=== PATIENT | female | born 1995 | race Caucasian/White ===

== ENCOUNTER 2017-02-14 17:19 | Emergency (ER) | payer MEDICAID ==
[2017-02-14 17:36] VITALS: BP 122/78; PULSE 96; RESP 16; TEMP 97.9; O2SAT 100
[2017-02-14 17:40] LABS: COLOR PALE YELLOW; LEUKOCYTE ESTERASE,URINE NEGATIVE (NEGATIVE); NITRITE,URINE NEGATIVE (NEGATIVE); PH,URINE 7.5 (5.0-7.5)
[2017-02-14 17:48] LABS: BACTERIA TRACE /hpf (NONE SEEN); MUCUS TRACE /lpf (NONE-1+); RBC,URINE OCCASIONAL /hpf (0-3)
[2017-02-14] MEDS ORDERED: CEPHALEXIN 500 MG CAP PO ONE (17:51)
--- NOTE | 2017-02-14 17:54 | UCPHY ---
H & P Patient Type: Established Chief Complaint Nursing Narrative: burning/frequency/urgency/bilateral flank pain x 2 days. Time Seen by Provider: 02/14/17 17:45 HPI/ROS: CHIEF COMPLAINT: Dysuria HISTORY OF PRESENT ILLNESS: The patient is a 21-year-old female diabetic who comes to the Urgent Care complaining of dysuria for the last 8 hours. She has not had a fever. She does have some bilateral flank pain. She states that this feels similar to previous urinary tract infections. Glucose level has been controlled. She has not had any abdominal cramping vomiting. No body aches. No rash. No discharge. No bleeding. REVIEW OF SYSTEMS: Constitutional: denies: chills, fever, recent illness, recent injury EENTM: denies: blurred vision, double vision, nose congestion Respiratory: denies: cough, shortness of breath Cardiac: denies: chest pain, irregular heart rate, lightheadedness, palpitations Gastrointestinal/Abdominal: denies: abdominal pain, diarrhea, nausea, vomiting, blood streaked stools Genitourinary: See HPI Musculoskeletal: denies: joint pain, muscle pain Skin: denies: lesions, rash, jaundice, bruising Neurological: denies: headache, numbness, paresthesia, tingling, dizziness, weakness Hematologic/Lymphatic: denies: blood clots, easy bleeding, easy bruising Immunologic/allergic: denies: HIV/AIDS, transplant EXAM: GENERAL: Well-appearing, well-nourished and in no acute distress. HEAD: Atraumatic, normocephalic. EYES: Pupils equal round and reactive to light, extraocular movements intact, sclera anicteric, conjunctiva are normal. ENT: TMs normal, nares patent, oropharynx clear without exudates. Moist mucous membranes. NECK: Normal range of motion, supple without lymphadenopathy or JVD. LUNGS: Breath sounds clear to auscultation bilaterally and equal. No wheezes rales or rhonchi. HEART: Regular rate and rhythm without murmurs, rubs or gallops. ABDOMEN: Soft, nontender, normoactive bowel sounds. No guarding, no rebound. No masses appreciated. BACK: No CVA tenderness, no spinal tenderness, step-offs or deformities EXTREMITIES: Normal range of motion, no pitting or edema. No clubbing or cyanosis. NEUROLOGICAL: Cranial nerves II through XII grossly intact. Normal speech, normal gait. 5/5 strength, normal movement in all extremities, normal sensation PSYCH: Normal mood, normal affect. SKIN: Warm, dry, normal turgor, no visible rashes or lesions. Source: Patient Exam Limitations: No limitations - Personal History LMP (Females 10-55): Extended Cycle BCP/Inj Tetanus Vaccine Date: Aug 2012 - Medical/Surgical History Hx Asthma: No Hx Chronic Respiratory Disease: No Hx Diabetes: No Hx Cardiac Disease: No Hx Renal Disease: No Hx Cirrhosis: No Hx Alcoholism: No Hx HIV/AIDS: No Hx Splenectomy or Spleen Trauma: No Other PMH: DM I, anxiety/depression - Family History Significant Family History: No pertinent family hx - Social History Smoking Status: Current every day smoker Alcohol Use: Sober Drug Use: None Constitutional: Initial Vital Signs Temperature (C) 36.6 C 02/14/17 17:29 Heart Rate 96 02/14/17 17:29 Respiratory Rate 16 02/14/17 17:29 Blood Pressure 122/78 H 02/14/17 17:29 O2 Sat (%) 100 02/14/17 17:29 O2 Delivery Mode Room Air Allergies/Adverse Reactions: Opioids - Morphine Analogues Allergy (Verified 05/08/16 10:36) Home Medications: Medication Instructions Recorded Insulin Detemir [Levemir] 12 unit SQ BID 12/28/14 Insulin Lispro [Humalog] 0 unit SQ TIDMEAL 12/28/14 Control Patch 05/08/16 Acyclovir 06/02/16 Cephalexin [Keflex] 500 mg PO BID 5 Days 06/02/16 Cephalexin [Keflex] 500 mg PO TID #21 cap 02/14/17 Medical Decision Making ED Course/Re-evaluation: The patient has symptoms and urinalysis consistent with urinary tract infection. I will start her on Keflex. She states that her glucose has been well controlled. She is not concerned about DKA. We did discuss the glucose in her urine. She does state Dinner. She declines further workup or testing at this time. We discussed urine cultures and continued follow-up. Differential Diagnosis: Partial list of the Differential diagnosis considered include but were not limited to; urinary tract infection, DKA and although unlikely based on the history and physical exam, I also considered STD PID kidney stone, . I discussed these differential diagnoses and the plan with the patient as well as the usual and expected course. The patient understands that the diagnosis is provisional and that in medicine we are not always correct and that further workup is often warranted. Usual and customary warnings were given. All of the patient's questions were answered. The patient was instructed to return to the emergency department should the symptoms at all worsen or return, otherwise to followup with the physician as we discussed. - Data Points Laboratory Results: 02/14/17 17:35 Urine Color PALE YELLOW Urine Appearance HAZY Urine pH 7.5 (5.0-7.5) Ur Specific [place] 1.015 (1.002-1.030) Urine Protein NEGATIVE (NEGATIVE) Urine Ketones NEGATIVE (NEGATIVE) Urine Blood NEGATIVE (NEGATIVE) Urine Nitrate NEGATIVE (NEGATIVE) Urine Bilirubin NEGATIVE (NEGATIVE) Urine Urobilinogen 0.2 EU EU (0.2-1.0) Ur Leukocyte Esterase NEGATIVE (NEGATIVE) Urine RBC OCCASIONAL /hpf /hpf (0-3) Urine WBC 5-10 /hpf H /hpf (0-3) Ur Epithelial Cells TRACE /lpf /lpf (NONE-1+) Urine Bacteria TRACE /hpf H /hpf (NONE SEEN) Urine Mucus TRACE /lpf /lpf (NONE-1+) Ur Culture Indicated? NOT INDICATED (NI) Urine Glucose 3+ H (NEGATIVE) Medications Given: Discontinued Medications Cephalexin HCl (Keflex) 500 mg PO EDNOW ONE PRN Reason: Protocol Stop: 02/14/17 17:52 Last Admin: 02/14/17 18:09 Dose: 500 mg Departure - Departure Disposition: Home, Routine, Self-Care Clinical Impression: Urinary tract infection Qualifiers: Urinary tract infection type: acute cystitis Hematuria presence: without hematuria Qualified Code(s): N30.00 - Acute cystitis without hematuria Condition: Fair Instructions: Urinary Tract Infection in Women (ED) Referrals: Bela Denny MD [Medical Doctor] - As per Instructions Prescriptions: Cephalexin [Keflex] 500 mg PO TID #21 cap - PQRS PQRS Measurement: Not applicable
== END 2017-02-14 18:12 | disposition home or self-care (01) ==
LOC: CED 17:19
DX: N30.00 Acute cystitis without hematuria (principal); E11.9 Type 2 diabetes mellitus without complications; Z72.0 Tobacco use
CPT/HCPCS: 81003-PO; 81015-PO; 99214-PO; G0463-PO

== ENCOUNTER 2017-04-06 16:23 | Emergency (ER) | payer MEDICAID ==
[2017-04-06 16:39] VITALS: BP 117/98; TEMP 97.5
[2017-04-06 16:39] LABS: LEUKOCYTE ESTERASE,URINE NEGATIVE (NEGATIVE); NITRITE,URINE NEGATIVE (NEGATIVE); PH,URINE 5.5 (5.0-7.5)
[2017-04-06 16:41] LABS: COLOR DARK YELLOW
[2017-04-06 16:48] LABS: BACTERIA TRACE /hpf (NONE SEEN); MUCUS 1+ /lpf (NONE-1+); RBC,URINE 15-25 /hpf (0-3); WBC,URINE OCCASIONAL /hpf (0-3); YEAST OCCASIONAL /hpf (NONE SEEN)
--- NOTE | 2017-04-06 16:59 | EDPHY ---
H & P Stated Complaint: 3 days burning,urgency,frequency,back pain Time Seen by Provider: 04/06/17 16:44 HPI/ROS: CHIEF COMPLAINT: Dysuria HISTORY OF PRESENT ILLNESS: The patient is a 21-year-old female with a history of diabetes who comes to the emergency department complaining of dysuria and frequency. She has had the symptoms for about 2 days. She has frequent urinary tract infections. She is here requesting antibiotics. She has not had a fever. No flank pain. No nausea vomiting or diarrhea. She started her menses yesterday. REVIEW OF SYSTEMS: Constitutional: denies: chills, fever, recent illness, recent injury EENTM: denies: blurred vision, double vision, nose congestion Respiratory: denies: cough, shortness of breath Cardiac: denies: chest pain, irregular heart rate, lightheadedness, palpitations Gastrointestinal/Abdominal: denies: abdominal pain, diarrhea, nausea, vomiting, blood streaked stools Genitourinary: See HPI Musculoskeletal: denies: joint pain, muscle pain Skin: denies: lesions, rash, jaundice, bruising Neurological: denies: headache, numbness, paresthesia, tingling, dizziness, weakness Hematologic/Lymphatic: denies: blood clots, easy bleeding, easy bruising Immunologic/allergic: denies: HIV/AIDS, transplant EXAM: GENERAL: Well-appearing, well-nourished and in no acute distress. HEAD: Atraumatic, normocephalic. EYES: Pupils equal round and reactive to light, extraocular movements intact, sclera anicteric, conjunctiva are normal. ENT: TMs normal, nares patent, oropharynx clear without exudates. Moist mucous membranes. NECK: Normal range of motion, supple without lymphadenopathy or JVD. LUNGS: Breath sounds clear to auscultation bilaterally and equal. No wheezes rales or rhonchi. HEART: Regular rate and rhythm without murmurs, rubs or gallops. ABDOMEN: Soft, nontender, normoactive bowel sounds. No guarding, no rebound. No masses appreciated. BACK: No CVA tenderness, no spinal tenderness, step-offs or deformities EXTREMITIES: Normal range of motion, no pitting or edema. No clubbing or cyanosis. NEUROLOGICAL: Cranial nerves II through XII grossly intact. Normal speech, normal gait. 5/5 strength, normal movement in all extremities, normal sensation PSYCH: Normal mood, normal affect. SKIN: Warm, dry, normal turgor, no visible rashes or lesions. Source: Patient Exam Limitations: No limitations - Personal History LMP (Females 10-55): Now Tetanus Vaccine Date: Aug 2012 - Medical/Surgical History Hx Asthma: No Hx Chronic Respiratory Disease: No Hx Diabetes: Yes Hx Cardiac Disease: No Hx Renal Disease: No Hx Cirrhosis: No Hx Alcoholism: No Hx HIV/AIDS: No Hx Splenectomy or Spleen Trauma: No Other PMH: DM I, anxiety/depression - Family History Significant Family History: No pertinent family hx - Social History Smoking Status: Current every day smoker Alcohol Use: Sober Drug Use: None Constitutional: Initial Vital Signs Temperature (C) 36.4 C 04/06/17 16:36 Heart Rate 121 H 04/06/17 16:36 Respiratory Rate 20 04/06/17 16:36 Blood Pressure 117/98 H 04/06/17 16:36 O2 Sat (%) 98 04/06/17 16:36 O2 Delivery Mode Room Air Allergies/Adverse Reactions: Opioids - Morphine Analogues Allergy (Verified 04/06/17 16:35) Home Medications: Medication Instructions Recorded Insulin Detemir [Levemir] 12 unit SQ BID 12/28/14 Insulin Lispro [Humalog] 0 unit SQ TIDMEAL 12/28/14 Cephalexin [Keflex] 500 mg PO TID #21 cap 04/06/17 Medical Decision Making ED Course/Re-evaluation: Patient is well appearing. She has some glucose in her urine but states that this is because she just ate. She does not wish to have further testing. I will start her on Keflex. She states this worked well for her in the past. Differential Diagnosis: Partial list of the Differential diagnosis considered include but were not limited to; urinary tract infection, kidney infection and although unlikely based on the history and physical exam, I also considered sepsis, . I discussed these differential diagnoses and the plan with the patient as well as the usual and expected course. The patient understands that the diagnosis is provisional and that in medicine we are not always correct and that further workup is often warranted. Usual and customary warnings were given. All of the patient's questions were answered. The patient was instructed to return to the emergency department should the symptoms at all worsen or return, otherwise to followup with the physician as we discussed. - Data Points Laboratory Results: 04/06/17 16:35 Urine Color DARK YELLOW Urine Appearance HAZY Urine pH 5.5 (5.0-7.5) Ur Specific [place] >= 1.030 (1.002-1.030) Urine Protein TRACE H (NEGATIVE) Urine Ketones 1+ H (NEGATIVE) Urine Blood 3+ H (NEGATIVE) Urine Nitrate NEGATIVE (NEGATIVE) Urine Bilirubin NEGATIVE (NEGATIVE) Urine Urobilinogen 0.2 EU EU (0.2-1.0) Ur Leukocyte Esterase NEGATIVE (NEGATIVE) Urine RBC 15-25 /hpf H /hpf (0-3) Urine WBC OCCASIONAL /hpf /hpf (0-3) Ur Epithelial Cells TRACE /lpf /lpf (NONE-1+) Urine Bacteria TRACE /hpf H /hpf (NONE SEEN) Urine Mucus 1+ /lpf /lpf (NONE-1+) Urine Yeast OCCASIONAL /hpf H /hpf (NONE SEEN) Urine Glucose 2+ H (NEGATIVE) Departure - Departure Disposition: Home, Routine, Self-Care Clinical Impression: Urinary tract infection Qualifiers: Urinary tract infection type: acute cystitis Hematuria presence: without hematuria Qualified Code(s): N30.00 - Acute cystitis without hematuria Condition: Fair Instructions: Urinary Tract Infection in Women (ED) Referrals: Vonda Dockery MD [Primary Care Provider] - As per Instructions Prescriptions: Cephalexin [Keflex] 500 mg PO TID #21 cap
[2017-04-06 17:36] VITALS: PULSE 88; RESP 16; O2SAT 97
== END 2017-04-06 17:09 | disposition home or self-care (01) ==
LOC: CED 16:23
DX: N30.00 Acute cystitis without hematuria (principal); E10.9 Type 1 diabetes mellitus without complications; F17.200 Nicotine dependence, unspecified, uncomplicated; B96.89 Other specified bacterial agents as the cause of diseases classified elsewhere
CPT/HCPCS: 81003-PO; 81015-PO

== ENCOUNTER 2017-05-12 13:47 | Emergency (ER) | payer MEDICAID ==
[2017-05-12 13:58] VITALS: BP 113/77; PULSE 104; RESP 18; TEMP 98.2; O2SAT 97
--- NOTE | 2017-05-12 14:07 | EDPHY ---
H & P Stated Complaint: rash on back and left side Time Seen by Provider: 05/12/17 14:01 HPI/ROS: CHIEF COMPLAINT: Rash HISTORY OF PRESENT ILLNESS: The patient is a 21-year-old female who comes to the emergency department complaining of a rash on her back and now abdomen. It began 4 days ago. It is slightly painful and itchy. She has small pustules. They do not coalesce. No fever. REVIEW OF SYSTEMS: Constitutional: denies: chills, fever, recent illness, recent injury EENTM: denies: blurred vision, double vision, nose congestion Respiratory: denies: cough, shortness of breath Cardiac: denies: chest pain, irregular heart rate, lightheadedness, palpitations Gastrointestinal/Abdominal: denies: abdominal pain, diarrhea, nausea, vomiting, blood streaked stools Genitourinary: denies: dysuria, frequency, hematuria, pain Musculoskeletal: denies: joint pain, muscle pain Skin: See HPI Neurological: denies: headache, numbness, paresthesia, tingling, dizziness, weakness Hematologic/Lymphatic: denies: blood clots, easy bleeding, easy bruising Immunologic/allergic: denies: HIV/AIDS, transplant EXAM: GENERAL: Well-appearing, well-nourished and in no acute distress. HEAD: Atraumatic, normocephalic. EYES: Pupils equal round and reactive to light, extraocular movements intact, sclera anicteric, conjunctiva are normal. ENT: TMs normal, nares patent, oropharynx clear without exudates. Moist mucous membranes. NECK: Normal range of motion, supple without lymphadenopathy or JVD. LUNGS: Breath sounds clear to auscultation bilaterally and equal. No wheezes rales or rhonchi. HEART: Regular rate and rhythm without murmurs, rubs or gallops. ABDOMEN: Soft, nontender, normoactive bowel sounds. No guarding, no rebound. No masses appreciated. BACK: No CVA tenderness, no spinal tenderness, step-offs or deformities EXTREMITIES: Normal range of motion, no pitting or edema. No clubbing or cyanosis. NEUROLOGICAL: Cranial nerves II through XII grossly intact. Normal speech, normal gait. 5/5 strength, normal movement in all extremities, normal sensation PSYCH: Normal mood, normal affect. SKIN: Patient has small pustular lesions spread underneath her bra line back and front. no urticaria, no cellulitis Source: Patient Exam Limitations: No limitations - Personal History Current Tetanus/Diphtheria Vaccine: Unsure Tetanus Vaccine Date: Aug 2012 - Medical/Surgical History Hx Asthma: No Hx Chronic Respiratory Disease: No Hx Diabetes: Yes Hx Cardiac Disease: No Hx Renal Disease: No Hx Cirrhosis: No Hx Alcoholism: No Hx HIV/AIDS: No Hx Splenectomy or Spleen Trauma: No Other PMH: DM I, anxiety/depression - Family History Significant Family History: No pertinent family hx - Social History Smoking Status: Current every day smoker Alcohol Use: Sober Drug Use: None Constitutional: Initial Vital Signs Temperature (C) 36.8 C 05/12/17 13:56 Heart Rate 104 H 05/12/17 13:56 Respiratory Rate 18 05/12/17 13:56 Blood Pressure 113/77 05/12/17 13:56 O2 Sat (%) 97 05/12/17 13:56 O2 Delivery Mode Room Air Allergies/Adverse Reactions: Opioids - Morphine Analogues Allergy (Verified 04/06/17 16:35) Home Medications: Medication Instructions Recorded Insulin Detemir [Levemir] 12 unit SQ BID 12/28/14 Insulin Lispro [Humalog] 0 unit SQ TIDMEAL 12/28/14 Cephalexin [Keflex] 500 mg PO TID #21 cap 04/06/17 Cephalexin [Keflex] 500 mg PO TID #21 cap 05/12/17 Medical Decision Making ED Course/Re-evaluation: The patient has an exam consistent with folliculitis. We discussed possible treatments. I will treat her with Keflex and encouraged her to stay out of the heat. It is been close to 100 degrees each day for the last few days. Also hygiene. She is happy with this plan and declines further workup or testing at this time. Differential Diagnosis: Partial list of the Differential diagnosis considered include but were not limited to; folliculitis, shingles and although unlikely based on the history and physical exam, I also considered urticaria, cellulitis, abscess. I discussed these differential diagnoses and the plan with the patient as well as the usual and expected course. The patient understands that the diagnosis is provisional and that in medicine we are not always correct and that further workup is often warranted. Usual and customary warnings were given. All of the patient's questions were answered. The patient was instructed to return to the emergency department should the symptoms at all worsen or return, otherwise to followup with the physician as we discussed. Departure - Departure Disposition: Home, Routine, Self-Care Clinical Impression: Folliculitis Condition: Fair Instructions: Folliculitis (ED) Referrals: Vonda Dockery MD [Primary Care Provider] - As per Instructions Prescriptions: Cephalexin [Keflex] 500 mg PO TID #21 cap
== END 2017-05-12 14:16 | disposition home or self-care (01) ==
LOC: CED 13:47
DX: L73.9 Follicular disorder, unspecified (principal); E10.9 Type 1 diabetes mellitus without complications; F17.200 Nicotine dependence, unspecified, uncomplicated

== ENCOUNTER 2017-09-09 12:17 | Emergency (ER) | payer MEDICAID ==
[2017-09-09 12:30] VITALS: BP 105/87; PULSE 103; RESP 18; TEMP 98.1; O2SAT 97
--- NOTE | 2017-09-09 13:15 | EDPHY ---
H & P Time Seen by Provider: 09/09/17 12:41 HPI/ROS: This patient has a 4 day history of itchy arm rash bilaterally after she was exposed to ham juice when she was cleaning up the meat department at [email or web address] on Wednesday. She explains that within minutes she had some erythema and itching to the left arm subsequently developing on the right arm as well. She cleaned her arms and her hands thereafter but reports persistent red itchy rash that spread from its initial isolated area on her arms to the general dorsum of both forearms. She has not tried any medications for rash. Her current medical history is notable for insulin-dependent diabetes and 19 week intrauterine . She is followed at [facility] for her . ROS: No fevers. No other constitutional symptoms HEENT: No intraoral lesions. No coryza or URI symptoms. Pulmonary: No wheeze or shortness of breath. Cardiovascular: No heart palpitations lightheadedness GI: No nausea vomiting Integumentary: Rash other than the rash on her arms currently. 7 point ROS is otherwise negative. Past Medical/Surgical History: Insulin-dependent diabetes -19 weeks Family history: Brother with psoriasis Smoking Status: Current every day smoker Physical Exam: Physical Exam Vital signs are normal. General: No acute distress HEENT: Oropharynx: No angioedema or intraoral lesions. Eyes: Pupils equal and react to light. Extraocular motions are intact. No conjunctival injection Lungs: No respiratory distress. Cardiac: Brisk capillary refill is intact throughout. Skin: N patient is a fine erythematous rash the dorsum of both arms. No petechia purpura. No significant papular lesions. No open a wounds. No significant warmth to touch. The rest for skin exam is normal. Neuro: Alert with no significant sensorimotor deficits. Initial differential diagnosis: Allergic dermatitis, psoriasis, Constitutional: Initial Vital Signs Temperature (C) 36.7 C 09/09/17 12:28 Heart Rate 103 H 09/09/17 12:28 Respiratory Rate 18 09/09/17 12:28 Blood Pressure 105/87 H 09/09/17 12:28 O2 Sat (%) 97 09/09/17 12:28 O2 Delivery Mode Room Air Allergies/Adverse Reactions: Opioids - Morphine Analogues Allergy (Verified 09/09/17 12:26) Home Medications: Medication Instructions Recorded Insulin Detemir [Levemir] 12 unit SQ BID 02/06/15 Hydrocortisone 0.2% Valerate 1 rex TP BID #15 g 09/09/17 [Westcort 0.2% Cream (*)] novoLOG 09/09/17 MDM/Departure - [facility] ED Course/Re-evaluation: Discussion: Patient with isolated arm rash that is pruritic and likely allergic dermatitis from something in the honey treated ham. I counseled regarding this. Will plan to treat her with steroid cream and Benadryl. No evidence of anaphylaxis, infectious etiology or other concerning findings - Depart Disposition: Home, Routine, Self-Care Clinical Impression: Allergic dermatitis Clinical Impression: (Ruled Out): Atopic dermatitis Condition: Good Instructions: Dermatitis (ED) Additional Instructions: Diagnosis: Allergic dermatitis Plan: Benadryl for itching as needed Westcort cream applied to affected areas 2 times a day until the rash resolves Return for any significant worsening. Prescriptions: Hydrocortisone 0.2% Valerate [Westcort 0.2% Cream (*)] 1 rex TP BID #15 g Referrals: Vonda Dockery MD [Primary Care Provider] - As per Instructions
== END 2017-09-09 13:16 | disposition home or self-care (01) ==
LOC: CED 12:17
DX: O99.712 Diseases of the skin and subcutaneous tissue complicating pregnancy, second trimester (principal); L23.9 Allergic contact dermatitis, unspecified cause; E11.9 Type 2 diabetes mellitus without complications; F17.200 Nicotine dependence, unspecified, uncomplicated; Z3A.19 19 weeks gestation of pregnancy; Z79.4 Long term (current) use of insulin

== ENCOUNTER 2017-11-24 11:07 | Emergency (ER) | payer MEDICAID ==
[2017-11-24 11:19] VITALS: BP 112/73; PULSE 115; RESP 18; TEMP 98.2; O2SAT 97
--- NOTE | 2017-11-24 11:44 | EDPHY ---
H & P Time Seen by Provider: 11/24/17 11:21 HPI/ROS: This patient reports a 3 day history of coryza and a cough. She is currently at 30 weeks gestation and she reports slight dyspnea associated with her symptoms that she thinks is a combination of the illness and also her . She does have a history of mild asthma as a child but has not had significant symptoms as an adult up to this point. She is not currently have an inhaler. She reports that the cough is a dry cough. She has no other associated symptoms except slight ear pressure bilaterally. ROS: No fevers or chills. No significant fatigue. No other constitutional symptoms. HEENT: No sinus pain. Pulmonary: No pleuritic pain. No hemoptysis. No respiratory distress. Cardiovascular: No lightheadedness. No leg swelling. GI: No abdominal pain, or vomiting. No diarrhea. : No vaginal bleeding. No urinary symptoms. Endocrine: Patient checks her glucose frequently and reports no recent hyperglycemia on her normal insulin doses. 10 point ROS is otherwise negative Past Medical/Surgical History: Type 1 diabetes Current IUP at 30 weeks gestation followed at the [facility] in [place] as well as by a local OBGYN. Smoking Status: Former smoker Physical Exam: Physical Exam Vital signs are normal. General: No acute distress HEENT: Nose: Clear discharge bilaterally. No sinus tenderness to percussion. Ears: External canals and tympanic membranes are clear with no erythema or abnormal findings bilaterally. Oropharynx: No erythema or exudates. No dysphonia. No drooling or stridor. Eyes: Pupils equal and react to light. Extraocular motions are intact. Neck: Supple with no meningismus. No lymphadenopathy Lungs: Clear to auscultation bilaterally with no rales, rhonchi or wheeze. No respiratory distress. Cardiac: Regular rate and rhythm with no murmur gallop or rub Abdomen: Gravid uterus consistent with dates nontender Skin: No rash or pallor. Neuro: Alert with no focal deficits noted. Initial differential diagnosis: URI with cough, doubt bronchitis or pneumonia Constitutional: Initial Vital Signs Temperature (C) 36.8 C 11/24/17 11:17 Heart Rate 115 H 11/24/17 11:17 Respiratory Rate 18 11/24/17 11:17 Blood Pressure 112/73 11/24/17 11:17 O2 Sat (%) 97 11/24/17 11:17 O2 Delivery Mode Room Air Allergies/Adverse Reactions: Opioids - Morphine Analogues Allergy (Verified 11/24/17 11:16) Home Medications: Medication Instructions Recorded Insulin Detemir [Levemir] 12 unit SQ BID 12/28/14 novoLOG 09/09/17 Albuterol Hfa Anes Only [Proair 2 puffs IH Q4 PRN #1 mdi 11/24/17 Hfa Icu (*)] Benzonatate [Tessalon Pearles (RX)] 100 - 200 mg PO TID PRN #20 cap 11/24/17 NPH, HUMAN INSULIN ISOPHANE 11/24/17 [NOVOLIN N] Synthroid 11/24/17 MDM/Departure - MDM ED Course/Re-evaluation: Discussion: Patient afebrile with essentially normal exam with exception for 30 week and clear coryza with a cough but no pulmonary findings this time. Given her history of asthma and feeling of slight dyspnea will provide a script for albuterol in case she develops wheezing. I counseled her regarding this. Also provided Tessalon Perles and case for cough prevents sleep but explained that there is no need to take this medication less she tripped can't sleep due to the cough. No clinical evidence currently of lower respiratory infection or other concerning findings. However, the patient understands the need to return emergency department should she developed any additional or worsening symptoms. - Depart Disposition: Home, Routine, Self-Care Clinical Impression: Viral URI with cough, History of asthma Condition: Good Instructions: Upper Respiratory Infection (ED) Additional Instructions: Diagnosis: 1. Viral upper respiratory infection with cough 2. History of asthma Plan: Humidifier If you feel wheezy and short of breath, use albuterol inhaler 2 puffs per 4 hr if needed. He cannot sleep despite guaifenesin, try Tessalon Perles as prescribed. Your symptoms should improve over the course of 3-10 days. Follow-up with primary care physician for any ongoing symptoms despite treatment plan Return for any significant worsening despite treatment plan Prescriptions: Albuterol Hfa Anes Only [Proair Hfa Icu (*)] 2 puffs IH Q4 PRN #1 mdi PRN Reason: Wheezing Benzonatate [Tessalon Pearles (RX)] 100 - 200 mg PO TID PRN #20 cap PRN Reason: cough Referrals: Vonda Dockery MD [Primary Care Provider] - As per Instructions
== END 2017-11-24 11:57 | disposition home or self-care (01) ==
LOC: CED 11:07
DX: O99.513 Diseases of the respiratory system complicating pregnancy, third trimester (principal); J06.9 Acute upper respiratory infection, unspecified; J45.909 Unspecified asthma, uncomplicated; E10.9 Type 1 diabetes mellitus without complications; Z3A.30 30 weeks gestation of pregnancy

== ENCOUNTER 2018-02-10 11:59 | Emergency (ER) | payer MEDICAID ==
[2018-02-10 12:10] VITALS: RESP 16
[2018-02-10] MEDS ORDERED: KETOROLAC 30 MG/1 ML SDV IVP ONE (12:16)
[2018-02-10] MEDS ORDERED: DEXAMETHASONE 10 MG/ML VIAL IVP ONE (12:16)
[2018-02-10] MEDS ORDERED: NS 1,000 ML IV ONE (12:16)
[2018-02-10] MEDS ORDERED: BICILLIN L-A 1200000 UNIT/2 ML SYRINGE IM ONE (12:40)
--- NOTE | 2018-02-10 12:49 | EDPHY ---
H & P Time Seen by Provider: 02/10/18 12:12 HPI/ROS: HPI Sore throat. 22-year-old female by private vehicle. She complains of a worsening sore throat over the last 2 days. She is now having difficulty with swallowing. She denies any voice changes. She reports it hurts more to swallow. She has not had stridor. No recent dental work. She is a type 1 diabetic. ROS: Constitutional: No fever, no chills. No weakness. Eyes: No discharge. No changes in vision. ENT: As above. No nasal congestion or rhinorrhea. Respiratory: No cough. No shortness of breath. Cardiac: No chest pain, no palpitations. Gastrointestinal: No abdominal pain, no vomiting, no diarrhea. Musculoskeletal: No back pain. No neck pain. No myalgias or arthralgias. Skin: No rashes. Neurological: No headache. No focal weakness or altered sensation. Past medical history: Type 1 diabetes, hypothyroid, anxiety/depression, GERD. Social history: Nonsmoker. She is here by herself. Denies alcohol. Physical Exam: General Appearance: Alert, pleasant, she is mildly anxious but not in distress. This patient is responding to questions appropriately and in full sentences. This patient appears well-hydrated and well-nourished. Eyes: Pupils equal and round no pallor or injection. No lid edema, erythema or injection. ENT, Mouth: Mucous membranes are moist. Significant for diffuse pharyngeal and tonsillar erythema. No asymmetry to suggest abscess. She has scant white exudates on both tonsils and in the posterior pharynx. There is no stridor on auscultation of her neck. Mild cervical lymphadenopathy. No submandibular or submental lymphadenopathy. Respiratory: There are no retractions, lungs are clear to auscultation with good air movement bilaterally. Cardiovascular: Regular rate and rhythm. No murmur. Neurological: Motor sensory function is grossly intact. Cranial nerves are normal. Gait is normal. Skin: Warm and dry, no rashes. Musculoskeletal: Neck is supple and nontender. Extremities are symmetrical. All joints range without pain or impingement. Psychiatric: No agitation. No depression. Database: EKG: Imaging: Soft tissue neck x-ray series: Normal. Reviewed by myself. I also read the report by the radiologist. Please see above for further details. Procedures: Emergency department course: IV was placed. She was started on IV normal saline with 1 L to be given over the next hour. Medication allergies reviewed. She has no contraindications to NSAIDs. No history of gastric ulcers or renal insufficiency. Normal creatinine verified from 2016. She will be given 10 mg of IV Decadron and 30 mg of IV Toradol initially. 12:45 p.m., rapid strep is positive. No allergies to penicillin. She will be given intramuscular penicillin G long-acting. 1:55 p.m., patient re-evaluated. Resting comfortably at this time. She is feeling much better. I discussed the results of her emergency department workup and soft tissue neck x-ray. No stridor. No voice changes. She feels comfortable going home and I feel she is safe for discharge. She has received her penicillin injection. Follow-up and return to emergency department precautions reviewed. I will treat her with high-dose ibuprofen for the next 3 days as well as a repeat dose of Decadron to be given tomorrow. Return to emergency department precautions were thoroughly reviewed with her. All of her questions were answered. She was discharged in good condition. Differential Diagnosis: The differential diagnosis on this patient includes but is not limited to streptococcal pharyngitis. Retropharyngeal abscess, peritonsillar abscess, epiglottitis, tracheitis unlikely. This represents a partial list of diagnoses considered. These considerations are based on history, physical exam, past history, reassessment and diagnostic testing. Smoking Status: Current some day smoker Constitutional: Initial Vital Signs Temperature (C) 36 C 02/10/18 12:05 Heart Rate 98 02/10/18 12:05 Respiratory Rate 16 02/10/18 12:05 Blood Pressure 127/92 H 02/10/18 12:05 O2 Sat (%) 95 02/10/18 12:05 O2 Delivery Mode Room Air Allergies/Adverse Reactions: Opioids - Morphine Analogues Allergy (Verified 11/24/17 11:16) Home Medications: Medication Instructions Recorded novoLOG 09/09/17 Dexamethasone [Decadron 4 MG (RX)] 8 mg PO ONCE #2 tab 02/10/18 Levemir 02/10/18 Medical Decision Making - Diagnostics Imaging Results: Imaging Impressions Soft Tissue Neck X-Ray 02/10/18 12:36 Impression: Cervical soft tissues negative for acute abnormality. - Data Points Laboratory Results: Laboratory Results 02/10/18 12:28 02/10/18 02/10/18 02/10/18 12:28 12:28 12:13 Sodium 135 mEq/L mEq/L (135-145) Potassium 3.9 mEq/L mEq/L (3.5-5.2) Chloride 102 mEq/L mEq/L (97-110) Carbon Dioxide 23 mEq/l mEq/l (22-31) Anion Gap 10 mEq/L mEq/L (8-16) BUN 13 mg/dL mg/dL (7-23) Creatinine 0.6 mg/dL mg/dL (0.6-1.0) Estimated GFR > 60 Glucose 236 mg/dL H mg/dL (70-100) Calcium 9.1 mg/dL mg/dL (8.5-10.4) Monoscreen NEGATIVE (NEGATIVE) Group A Strep Screen POSITIVE H (NEGATIVE) Medications Given: Discontinued Medications Dexamethasone (Decadron Injection) 10 mg IVP EDNOW ONE Stop: 02/10/18 12:17 Last Admin: 02/10/18 12:35 Dose: 10 mg Sodium Chloride (Ns) 1,000 mls @ 0 mls/hr IV ONCE ONE; Wide Open PRN Reason: Protocol Stop: 02/10/18 12:17 Last Admin: 02/10/18 12:25 Dose: 1,000 mls Ketorolac Tromethamine (Toradol) 30 mg IVP EDNOW ONE Stop: 02/10/18 12:17 Last Admin: 02/10/18 12:30 Dose: 30 mg Penicillin G Benzathine (Bicillin L-A) 1,200,000 unit IM EDNOW ONE PRN Reason: Protocol Stop: 02/10/18 12:41 Last Admin: 02/10/18 13:20 Dose: 1,200,000 unit Departure - Departure Disposition: Home, Routine, Self-Care Clinical Impression: Acute streptococcal pharyngitis Condition: Good Instructions: Strep Throat (ED) Additional Instructions: Read and follow provided instructions. Follow-up with your primary care physician in 1-2 days for re-evaluation. Take medication as prescribed. 1 time dose of Decadron, 8 mg, to be taken tomorrow early afternoon. You can start taking ibuprofen tonight after 10:00 p.m.. Ibuprofen dosin mg every 6 hours with meals for the next 3 days only. Take only as needed for pain. Return to the emergency department for worsening pain, difficulty swallowing, voice changes, difficulty breathing, stridor or other serious concerns. Referrals: Vonda Dockery MD [Primary Care Provider] - As per Instructions Prescriptions: Dexamethasone [Decadron 4 MG (RX)] 8 mg PO ONCE #2 tab
[2018-02-10 13:58] VITALS: BP 145/91; PULSE 93; TEMP 97.9; O2SAT 97
== END 2018-02-10 14:05 | disposition home or self-care (01) ==
LOC: CED 11:59
DX: J02.0 Streptococcal pharyngitis (principal); E86.9 Volume depletion, unspecified; E10.9 Type 1 diabetes mellitus without complications; F17.200 Nicotine dependence, unspecified, uncomplicated
CPT/HCPCS: 70360-PO; 80048-PO; 86308-PO; 87880-PO; 96374; J0561; J1100; J1885

== ENCOUNTER 2018-09-30 15:07 | Emergency (ER) | payer MEDICAID ==
--- NOTE | 2018-09-30 15:29 | EDPHY ---
H & P Stated Complaint: Time Seen by Provider: 09/30/18 15:11 HPI/ROS: CHIEF COMPLAINT: I think I am and I had my tubes tied History by patient HISTORY OF PRESENT ILLNESS: 23-year-old woman with history of type 1 diabetes presents worried that she might be although she had her tubes tied in December of this year at the time of a . Patient states that her last menstrual period was in June and then over the past couple weeks her sugars have been running very low which is what happened when she was previously. Her insulin dose has been cut back but her sugars have been persistently low and she feels like she is . This prompted her to do a home test which was positive. She denies any abdominal pain does complain of some bilateral groin pain which that is similar to what she had when she was previously . She has had no vaginal bleeding or discharge. She denies any back pain. She denies any fainting or dizziness. REVIEW OF SYSTEMS: As in HPI, and all other systems reviewed and are negative Source: Patient - Personal History LMP (Females 10-55): Over 28 Days Ago Tetanus Vaccine Date: Oct 2017 - Medical/Surgical History Hx Asthma: No Hx Chronic Respiratory Disease: No Hx Diabetes: Yes Hx Cardiac Disease: No Hx Renal Disease: No Hx Cirrhosis: No Hx Alcoholism: No Hx HIV/AIDS: No Hx Splenectomy or Spleen Trauma: No Other PMH: DM I, anxiety/depression, GERD, hypothroid, 2017 - Social History Smoking Status: Current some day smoker - Physical Exam Exam: General Appearance: Alert, obese, nontoxic-appearing. Eyes: Pupils equal and round, extraocular movements intact, no pallor or injection. Mouth: Mucous membranes moist. Pharynx clear Respiratory: Normal, effort, lungs are clear to auscultation. No wheezes, rales or rhonchi. Cardiovascular: Regular rate and rhythm. S1, S2, no murmurs, gallops or rubs appreciated Gastrointestinal: bowel sounds decreased, Abdomen is soft and mild left lower quadrant and suprapubic tenderness, no masses Back: No CVA tenderness, no bony tenderness Neurological: Awake, alert and oriented x 3, no pronator drift, normal gait, no pronator drift Skin: Warm and dry, no rashes. Musculoskeletal: No deformities or tenderness. Extremities: full range of motion, no edema Psychiatric: Patient has normal affect, there is no agitation. Constitutional: Initial Vital Signs Heart Rate 88 09/30/18 15:13 Respiratory Rate 18 09/30/18 15:13 Blood Pressure 132/93 H 09/30/18 15:13 O2 Sat (%) 97 09/30/18 15:13 O2 Delivery Mode Room Air Allergies/Adverse Reactions: Opioids - Morphine Analogues Allergy (Verified 11/24/17 11:16) Home Medications: Medication Instructions Recorded novoLOG 09/09/17 Dexamethasone [Decadron 4 MG (RX)] 8 mg PO ONCE #2 tab 02/10/18 Levemir 02/10/18 Medical Decision Making ED Course/Re-evaluation: 23-year-old woman with type 1 diabetes with history of tubal ligation and last menstrual period June presents with home positive test and feeling like she is . Patient is hemodynamically stable. Emergency department Bedside screening ultrasound showed intrauterine but given the patient's history of tubal ligation, formal ultrasound was obtained which confirmed viable intrauterine see at 10 weeks 4 days. Patient was referred for ongoing outpatient OB and endocrine care. - Data Points Laboratory Results: 09/30/18 15:38 POC Sodium 140 mEq/L mEq/L (135-145) POC Potassium 3.3 mEq/L mEq/L (3.3-5.0) POC Chloride 103.0 mEq/L mEq/L (97-110) POC Total CO2 22 mEq/L mEq/L (22-31) POC BUN 11 mg/dL mg/dL (7-23) POC Creatinine 0.4 mg/dL L mg/dL (0.6-1.0) POC Glucose 222 mg/dL H mg/dL (70-100) POC Calcium 9.7 mg/dL mg/dL (8.5-10.4) Point of Care Test Results: Chemistry 09/30/18 15:38 POC Sodium 140 mEq/L mEq/L (135-145) POC Potassium 3.3 mEq/L mEq/L (3.3-5.0) POC Chloride 103.0 mEq/L mEq/L (97-110) POC Total CO2 22 mEq/L mEq/L (22-31) POC BUN 11 mg/dL mg/dL (7-23) POC Creatinine 0.4 mg/dL L mg/dL (0.6-1.0) POC Glucose 222 mg/dL H mg/dL (70-100) POC Calcium 9.7 mg/dL mg/dL (8.5-10.4) Departure - Departure Disposition: Home, Routine, Self-Care Clinical Impression: Intrauterine Condition: Good Instructions: (ED) Additional Instructions: You were seen by Dr. Ladonna Pruitt today. Ultrasound test confirmed that you are . Please follow-up with your enterprise services manager in [place] regarding your blood sugars and with your OB Gy[facility] at [facility] or with Dr. Sandoval or her partners for ongoing care. Return for any worsening or new concerns. Referrals: KEVIN BACH [Other] - As per Instructions Marlene Sandoval MD [Medical Doctor] - As per Instructions
[2018-09-30 16:42] VITALS: BP 123/83
== END 2018-09-30 16:50 | disposition home or self-care (01) ==
LOC: CED 15:07
DX: O24.011 Pre-existing type 1 diabetes mellitus, in pregnancy, first trimester (principal); O09.291 Supervision of pregnancy with other poor reproductive or obstetric history, first trimester; Z3A.10 10 weeks gestation of pregnancy; Z98.51 Tubal ligation status
CPT/HCPCS: 80048-PO

== ENCOUNTER 2018-12-23 22:30 | Observation (INO) | payer MEDICAID ==
[2018-12-23] MEDS ORDERED: NS 1,000 ML IV ONE (22:51)
[2018-12-23] MEDS ORDERED: ONDANSETRON DISINTEGRATING 4 MG TAB PO ONE (22:51)
--- NOTE | 2018-12-23 23:32 | EDPHY ---
H & P Time Seen by Provider: 12/23/18 22:49 HPI/ROS: CHIEF COMPLAINT: Dehydration, nausea vomiting, syncope HISTORY OF PRESENT ILLNESS: This is a 23-year-old female with juvenile onset type 1 diabetes since age 6, some 17 years ago. This is her 3rd illness in 5 weeks. The other 2 illnesses seem to be URIs with scratchy throat and step particularly stuffy nose without any cough or nausea vomiting or diarrhea-until today. She was feeling well this week until 2 days ago which time she noted a bit of stuffy nose and mild sore throat. Yesterday on December 22, she started with a sensation of nausea. Today, December 23 she started having a sensation of worsening nausea and then by 11:00 a.m. Has been vomiting. She describes vomiting every 0.5 hr to an hour. At least 10 times. Most of the times it was mostly mucus perhaps some of the fluid she drank. At no point was there any blood or hemoptysis or hematemesis or coffee-grounds. She did not take any Pepto-Bismol. She does have a Skin scanner for diabetic management and been checking her sugars frequently and noted them to be somewhat low. Her last insulin administration based upon the reading was at 7:30 p.m., she uses a fast acting insulin based on a sliding scale. She continue me ill in the evening then at 9:30 a.m. Was taking a shower. She describes feeling a little weak in the shower as if her legs were not going to hold her up. As she finished this, admittedly hot, shower she went on to go to the room to dress. It was at that point that she collapsed landed on the floor. In point of fact there is no prodrome at that particular moment such as palpitations or sense that she was about to collapse. She said for found herself on the floor. Her last dose of Celexa was 2 days ago. She does not believe that there is a family history of prolonged QT. She has had believes she had an EKG some 4 years ago when admitted at [facility], but I am unable to find it. REVIEW OF SYSTEMS: Constitutional: No fever, no chills. Eyes: No discharge No diplopia ENT: No sore throat. Cardiovascular: No chest pain, no palpitations. Respiratory: No cough, shortness of breath, or wheezing. Gastrointestinal: See above Genitourinary: No hematuria or frequency. Musculoskeletal: No back pain. Skin: No rashes. Neurological: No headache. A 10 system review of systems was performed and is negative except for the noted findings in the HPI. Source: Patient - Personal History LMP (Females 10-55): Now Tetanus Vaccine Date: Oct 2017 - Medical/Surgical History Hx Asthma: No Hx Chronic Respiratory Disease: No Hx Diabetes: Yes Hx Cardiac Disease: No Hx Renal Disease: No Hx Cirrhosis: No Hx Alcoholism: No Hx HIV/AIDS: No Hx Splenectomy or Spleen Trauma: No Other PMH: DM I, anxiety/depression, GERD, hypothroid, 2017 - Family History Significant Family History: No pertinent family hx - Social History Smoking Status: Never smoked Alcohol Use: None Drug Use: None - Physical Exam Exam: General Appearance: Alert, no distress. Afebrile. Normal phonation. No respiratory distress. Obese. Poor IV access is noted Eyes: Pupils equal and round no pallor or injection. No icterus ENT, Mouth: Mucous membranes moderately dry Pharynx without erythema or exudate. TM Clear. Neck: No adenopathy. Supple. No JVD. Trachea in midline. Respiratory: There are no retractions, lungs are clear to auscultation. Cardiovascular: Regular rate and rhythm, without murmur. Abdomen: Soft and nontender, no masses, bowel sounds normal. . Neurological: Ox3. No motor weakness. Sensation intact. Gait nl. Skin: Warm and dry, no rashes. Musculoskeletal: No joint swelling. Extremities: No edema. Homans sign negative. No cords. Psychiatric: Normal affect. Patient is oriented X 3. There is no agitation Constitutional: Initial Vital Signs Temperature (C) 36.9 C 12/23/18 22:49 Heart Rate 101 H 12/23/18 22:49 Respiratory Rate 16 12/23/18 22:49 Blood Pressure 109/94 H 12/23/18 22:49 O2 Sat (%) 96 12/23/18 22:49 O2 Delivery Mode Room Air Allergies/Adverse Reactions: No Known Allergies Allergy (Unverified 12/23/18 22:46) Home Medications: Medication Instructions Recorded Insulin Lispro [Humalog] 12/23/18 Insulin NPH Human Isophane 12/23/18 [Novolin N] Medical Decision Making - Diagnostics EKG Interpretation: EKG: Interpreted by me contemporaneously. Rhythm: [Normal sinus rhythm.] Heart rate [78 ] QTc [563 ] QRS: [normal] [LBBB] STT segment: [normal] T Waves: Flat T segments on the precordium and to a lesser extent inferiorly Q waves [none] Summary: Sinus rhythm with prolonged QT and nonspecific low amplitude T changes anteriorly as well as inferiorly ED Course/Re-evaluation: Initially attempts were made by the staff to start an IV but IV access was particularly difficult. Thus she was given Zofran 4 mg ODT. Ultimately a left external jugular line was started by the nursing staff and labs were obtained. She notes that she has historically had particular difficulty with IV start and has required a PICC line in the past. An EKG was requested thinking given her 11 years of diabetic history that she might have some underlying coronary disease or given her nausea vomiting some electrode abnormality. Ultimately however it was shown to have a particularly prolonged QTC F of 563. It was at that time that I discussed the case with patient regarding her syncope at home and that prolonged QTC and the potential need for hospital admission. I will be discussing case with [facility] medical team once the electrolyte panel is complete. I have been unable to find an old EKG for comparison though she believes she had one back in 2014 when she was admitted at [facility]. Of note, as noted above, she stopped her Celexa 2 days ago. At this point in time her electrolytes and laboratory studies include the following: Serum sodium 142 Potassium 3.5 Magnesium pending Creatinine 0.6 Lactic acid normal at 0.8 Blood glucose prior to glucose administration of 61 Prior to the magnesium result which ultimately was 1.7 she was given 2 g of magnesium IV due to the history of syncope and prolonged QT WBC minimally elevated at 11. Magnesium was 1.7 Beta hydroxybutyrate pending Hospital Medicine paged to discuss case. Discussed with Dr. Mcclain who accepts the patient in ALS transfer via ambulance to the PCU at [facility] Differential Diagnosis: Differential diagnosis includes, but is not limited to: Gastroenteritis, hypoglycemia, hyperglycemia, diabetic ketoacidosis, dehydration , gastritis, mesenteric adenitis, food poisoning, bacterial dysentery, ventricular tachycardia, torsades de points. - Data Points Laboratory Results: Laboratory Results 12/23/18 23:55 12/24/18 12/24/18 12/23/18 00:08 00:05 23:55 WBC RBC Hgb Hct MCV MCH MCHC RDW Plt Count MPV Neut % (Auto) Lymph % (Auto) Clark % (Auto) Eos % (Auto) Baso % (Auto) Nucleat RBC Rel Count Absolute Neuts (auto) Absolute Lymphs (auto) Absolute Monos (auto) Absolute Eos (auto) Absolute Basos (auto) Absolute Nucleated RBC Immature Gran % Immature Gran # POC Sodium 142 mEq/L mEq/L (135-145) POC Potassium 3.5 mEq/L mEq/L (3.3-5.0) POC Chloride 105.0 mEq/L mEq/L (97-110) POC Total CO2 22 mEq/L mEq/L (22-31) POC BUN 14 mg/dL mg/dL (7-23) POC Creatinine 0.6 mg/dL mg/dL (0.6-1.0) POC Glucose 61 mg/dL L mg/dL (70-100) POC Lactic Acid Elliot 0.8 mmol/L mmol/L (0.7-2.1) POC Calcium 9.7 mg/dL mg/dL (8.5-10.4) Magnesium 1.7 mg/dL mg/dL (1.6-2.3) Beta-Hydroxybutyrate Pending 12/23/18 12/23/18 23:55 23:14 WBC 11.03 10^3/uL H 10^3/uL (3.80-9.50) RBC 4.79 10^6/uL 10^6/uL (4.18-5.33) Hgb 14.3 g/dL g/dL (12.6-16.3) Hct 42.0 % % (38.0-47.0) MCV 87.7 fL fL (81.5-99.8) MCH 29.9 pg pg (27.9-34.1) MCHC 34.0 g/dL g/dL (32.4-36.7) RDW 11.9 % % (11.5-15.2) Plt Count 331 10^3/uL 10^3/uL (150-400) MPV 9.8 fL fL (8.7-11.7) Neut % (Auto) 57.9 % % (39.3-74.2) Lymph % (Auto) 31.1 % % (15.0-45.0) Clark % (Auto) 7.0 % % (4.5-13.0) Eos % (Auto) 3.2 % % (0.6-7.6) Baso % (Auto) 0.5 % % (0.3-1.7) Nucleat RBC Rel Count 0.0 % % (0.0-0.2) Absolute Neuts (auto) 6.40 10^3/uL 10^3/uL (1.70-6.50) Absolute Lymphs (auto) 3.43 10^3/uL H 10^3/uL (1.00-3.00) Absolute Monos (auto) 0.77 10^3/uL 10^3/uL (0.30-0.80) Absolute Eos (auto) 0.35 10^3/uL 10^3/uL (0.03-0.40) Absolute Basos (auto) 0.05 10^3/uL 10^3/uL (0.02-0.10) Absolute Nucleated RBC 0.00 10^3/uL 10^3/uL (0-0.01) Immature Gran % 0.3 % % (0.0-1.1) Immature Gran # 0.03 10^3/uL 10^3/uL (0.00-0.10) POC Sodium POC Potassium POC Chloride POC Total CO2 POC BUN POC Creatinine POC Glucose 45 mg/dL L mg/dL (70-100) POC Lactic Acid Elliot POC Calcium Magnesium Beta-Hydroxybutyrate Medications Given: Discontinued Medications Sodium Chloride (Ns) 1,000 mls @ 0 mls/hr IV EDNOW ONE; Wide Open PRN Reason: Protocol Stop: 12/23/18 22:52 Last Admin: 12/24/18 00:03 Dose: 1,000 mls Magnesium Sulfate (Magnesium Sulf 2 Gm (Premix)) 50 mls @ 50 mls/hr IV EDNOW ONE Stop: 12/24/18 01:46 Last Admin: 12/24/18 01:00 Dose: 50 mls Ondansetron HCl (Zofran Odt) 4 mg PO EDNOW ONE Stop: 12/23/18 22:52 Last Admin: 12/23/18 23:48 Dose: 4 mg Point of Care Test Results: Chemistry 12/24/18 12/23/18 00:08 23:14 POC Sodium 142 mEq/L mEq/L (135-145) POC Potassium 3.5 mEq/L mEq/L (3.3-5.0) POC Chloride 105.0 mEq/L mEq/L (97-110) POC Total CO2 22 mEq/L mEq/L (22-31) POC BUN 14 mg/dL mg/dL (7-23) POC Creatinine 0.6 mg/dL mg/dL (0.6-1.0) POC Glucose 61 mg/dL L mg/dL 45 mg/dL L mg/dL (70-100) (70-100) POC Calcium 9.7 mg/dL mg/dL (8.5-10.4) Blood Gas/Lactic Acid-Venous 12/24/18 00:05 POC Lactic Acid Elliot 0.8 mmol/L mmol/L (0.7-2.1) Influenza PCR Flu Nasal Swab Collection Date 12/23/18 Flu Nasal Swab Collection Time 23:05 Influenza A Result Not Detected Influenza B Result Not Detected Departure - Departure Disposition: [facility] Inpatient Acute Clinical Impression: Prolonged Q-T interval on ECG, Hypoglycemia, Dehydration Syncope Qualifiers: Syncope type: unspecified Qualified Code(s): R55 - Syncope and collapse Condition: Fair Referrals: Patient,NotPresent [Primary Care Provider] - As per Instructions
[2018-12-24] MEDS ORDERED: MAGNESIUM SULF 2 GM/WATER 50 ML IV ONE (00:47)
[2018-12-24] MEDS ORDERED: MAGNESIUM SULF 2 GM/WATER 50 ML BAG IV ONE (00:56)
[2018-12-24 01:09] LABS: PLATELET COUNT 331 10^3/uL (150-400)
[2018-12-24] MEDS ORDERED: NS 1,000 ML IV ONE (01:54)
[2018-12-24] MEDS ORDERED: ACETAMINOPHEN 325 MG TAB PO PRN (02:09)
[2018-12-24] MEDS ORDERED: NS 1,000 ML IV SCH (02:15)
[2018-12-24] MEDS ORDERED: D50W 25 GM/50 ML VIAL IVP PRN (04:16)
--- NOTE | 2018-12-24 05:02 | PDGENHP ---
History and Physical - Chief Complaint nausea/vomiting, syncope - History of Present Illness Source - Patient provides history and appears reliable. EMR reviewed and case discussed with ED provider. HPI - Pleasant 23 yo F with pmhx significant for DM I, anxiety/depression who presents to the ED at [facility] with c/o 1 day history of nausea/vomiting. Patient notes + sick contacts at home including her young children. No diarrhea. Denies fevers/chills. Patient has not been able to keep any oral hydration or intake due to vomiting. Also notes some rhinorrhea/congestion. Patient took a hot shower late in the evening and reports walking between the bathroom and her bedroom to grab clothing and had a syncopal episode. patient denies any preceding lightheadedness, SOB, chest pain. She reports she could not have had LOC for more than a few seconds but woke up on the hallway floor. She denies any headache or changes in vision. In the ED, patient required placement of EJ due to difficult peripheral access and given 2 liters of IVF. she was also given a dose of zofran. Her blood sugar was noted to be <60 and she was given some juice with increase in her BS to > 90. Patient has a continuous BG monitor on left arm. Later during her time in the ED patient reported her syncopal episode and ekg was obtained listing a qtc of greater 580. Patient given magnesium for prolonged QT. She also reported recent cessation of celexa for depression. History Information - Allergies/Home Medication List Allergies/Adverse Reactions: No Known Allergies Allergy (Unverified 12/23/18 22:46) Home Medications: Insulin Lispro [Humalog] 12/23/18 [Last Taken Unknown] Insulin NPH Human Isophane [Novolin N] 12/23/18 [Last Taken Unknown] I have personally reviewed and updated: family history, medical history, social history, surgical history - Past Medical History diabetes type 1, GERD Additional medical history: hypothyroidism during . anxiety/depression , depression. shingles age 16 - Surgical History Additional surgical history: C/S. BTL - Family History Additional family history: mother - fibromyalgia, thyroid dysfunction. father - DM II, diverticulitis - Social History Smoking Status: Former smoker Alcohol Use: None Drug Use: None Additional social history: . lives with , son and daughter. Review of Systems Review of Systems: ROS: 10pt was reviewed & negative except for what was stated in HPI & below Constitutional: Reports: no symptoms EENMT: Reports: nose congestion, other (rhinorrhea) Cardiac: Reports: no symptoms Gastrointestinal: Reports: vomitting, nausea. Denies: abdominal pain, diarrhea Genitourinary: Reports: no symptoms Muscolosketal: Reports: no symptoms Skin: Reports: no symptoms Neurological: Reports: anxiety, depressed (no si/hi). Denies: headache, seizure , weakness Physical Exam Physical Exam: Selected Entries 12/23/18 22:49 Blood Pressure Automatic Method Heart Rate 101 H Respiratory 16 Rate O2 Sat (%) 96 Temperature (C) 36.9 C Blood Pressure 109/94 H Mean Arterial 99 Pressure (MAP) O2 Delivery Room Air Mode Temperature Oral Source Temp Pulse Resp BP Pulse Ox 36.5 C 90 14 116/79 97 12/24/18 03:39 12/24/18 03:39 12/24/18 03:39 12/24/18 03:39 12/24/18 03:39 Constitutional: no apparent distress, obese, other (NAD. pleasant young adult female lays quietly in bed. appears fatigued. nontoxic. ) Eyes: PERRL, anicteric sclera, EOMI, No scleral injection Ears, Nose, Mouth, Throat: dry mucous membranes, other (nasal congestion), No poor dentition Cardiovascular: regular rate and rhythym, no murmur, rub, or gallop, pulses symmetric bilaterally, No edema Peripheral Pulses: 2+: dorsalis-pedis (R), dorsalis-pedis (L) Respiratory: no respiratory distress, no rales or rhonchi, clear to auscultation , No inspiratory crackles, No respiratory distress Gastrointestinal: soft, non-tender abdomen, no palpable masses, other ( hypoactive bowel sounds. ) Genitourinary: no bladder tenderness, No hendricks in urethra Skin: warm, normal color, no rashes or abrasions Musculoskeletal: full muscle strength, No generalized weakness (sits up independently.) Psychiatric: interacting appropriately, not encephalopathic, thought process linear, anxious, other (pleasant and cooperative. thought process, content, questions appropriate. ), No depressed, No suicidal ideation Lab Data & Imaging Review 12/23/18 23:55 12/24/18 04:00 WBC 11.03 10^3/uL (3.80-9.50) H 12/23/18 23:55 RBC 4.79 10^6/uL (4.18-5.33) 12/23/18 23:55 Hgb 14.3 g/dL (12.6-16.3) 12/23/18 23:55 Hct 42.0 % (38.0-47.0) 12/23/18 23:55 MCV 87.7 fL (81.5-99.8) 12/23/18 23:55 MCH 29.9 pg (27.9-34.1) 12/23/18 23:55 MCHC 34.0 g/dL (32.4-36.7) 12/23/18 23:55 RDW 11.9 % (11.5-15.2) 12/23/18 23:55 Plt Count 331 10^3/uL (150-400) 12/23/18 23:55 MPV 9.8 fL (8.7-11.7) 12/23/18 23:55 Neut % (Auto) 57.9 % (39.3-74.2) 12/23/18 23:55 Lymph % (Auto) 31.1 % (15.0-45.0) 12/23/18 23:55 Cooper % (Auto) 7.0 % (4.5-13.0) 12/23/18 23:55 Eos % (Auto) 3.2 % (0.6-7.6) 12/23/18 23: Baso % (Auto) 0.5 % (0.3-1.7) 12/23/18 23: Nucleat RBC Rel Count 0.0 % (0.0-0.2) 12/23/18 23:55 Absolute Neuts (auto) 6.40 10^3/uL (1.70-6.50) 12/23/18 23:55 Absolute Lymphs (auto) 3.43 10^3/uL (1.00-3.00) H 12/23/18 23:55 Absolute Monos (auto) 0.77 10^3/uL (0.30-0.80) 12/23/18 23:55 Absolute Eos (auto) 0.35 10^3/uL (0.03-0.40) 12/23/18 23:55 Absolute Basos (auto) 0.05 10^3/uL (0.02-0.10) 12/23/18 23:55 Absolute Nucleated RBC 0.00 10^3/uL (0-0.01) 12/23/18 23:55 Immature Gran % 0.3 % (0.0-1.1) 12/23/18 23:55 Immature Gran # 0.03 10^3/uL (0.00-0.10) 12/23/18 23:55 POC Sodium 142 mEq/L (135-145) 12/24/18 00:08 Sodium 137 mEq/L (135-145) 12/24/18 04:00 POC Potassium 3.5 mEq/L (3.3-5.0) 12/24/18 00:08 Potassium 3.8 mEq/L (3.5-5.2) 12/24/18 04:00 POC Chloride 105.0 mEq/L (97-110) 12/24/18 00:08 Chloride 112 mEq/L (97-110) H 12/24/18 04:00 Carbon Dioxide 20 mEq/l (22-31) L 12/24/18 04:00 POC Total CO2 22 mEq/L (22-31) 12/24/18 00:08 Anion Gap 5 mEq/L (6-14) L 12/24/18 04:00 POC BUN 14 mg/dL (7-23) 12/24/18 00:08 BUN 14 mg/dL (7-23) 12/24/18 04:00 Creatinine 0.6 mg/dL (0.6-1.0) 12/24/18 04:00 POC Creatinine 0.6 mg/dL (0.6-1.0) 12/24/18 00:08 Estimated GFR > 60 12/24/18 04:00 Glucose 124 mg/dL (70-100) H 12/24/18 04:00 POC Glucose 61 mg/dL (70-100) L 12/24/18 00:08 POC Lactic Acid Elliot 0.8 mmol/L (0.7-2.1) 12/24/18 00:05 POC Calcium 9.7 mg/dL (8.5-10.4) 12/24/18 00:08 Calcium 8.5 mg/dL (8.5-10.4) 12/24/18 04:00 Magnesium 2.1 mg/dL (1.6-2.3) 12/24/18 04:00 Beta-Hydroxybutyrate 0.46 mmol/L (0.02-0.27) H 12/23/18 23:55 Visualized and Interpreted EKG results: Yes EKG additional interpertation: reviewed initial EKG from ED without significant change. repeat EKG NSR 70s. QTc 430s. nonspecific t wave changes. no acute ST changes. Assessment & Plan Assessment: Pleasant 23 yo F with DM I, anxiety/depression who presents to ED with c/o nausea/vomiting and syncopal episode. #Syncope - ddx most likely orthostasis vs vagal response vs. hypoglycemia vs less likely related to arrhythmia in setting of reported QT prolongation. Patient s/p 2 liters of IVF. her nausea/vomiting has been treated with zofran and resolved. she does continue to appear dry. will obtain orthostatics. patient would like to orally hydration in lieu of additional IVF as her access is EJ. electrolytes are adequate. BS improved. QTc on repeated EKG is normal. patient reports she is no longer taking celexa. #dehydration - in setting of likely viral type illness with reports of sick contacts, nasal congestion nausea/vomiting. patient serum ketones minimally elevated. repeat pending after IVF hydration. no AG/suspicion of DKA. likely component of starvation ketosis. continue to orally hydrate now that patient GI sx under control. #hypoglycemia - decreased po intake 2/2 viral illness. BS improved after PO intake. #DM I - continue patient home regimen when diet fully advanced. NPH and ISS/ carb count. diet as tolerated. FEN - s/p 2 liters IVF. PO challenge. electrolytes adequate. monitor and replace prn. advance diet as tolerated. PPX - SCDs. anticipate short hospital stay. COR - FULL Dispo - patient admitted to observation status on PCU. anticipate discharge later this AM as long as patient symptoms controlled and BS stabilized.
[2018-12-24] MEDS ORDERED: INSULIN LISPRO 100 UNIT/ML SC SCH (08:00)
[2018-12-24 08:16] VITALS: BP 102/59
--- NOTE | 2018-12-24 10:00 | ASMTCMCOM ---
CM Note CM Note Notes: Pt is a 23 y/o female with Type 1 diabetes who presented at the ED with nausea, vomitting, dehydration and hypoglycemiea. Pt admitted for observation. No CM needs indentified; CM will follow for changes. D/C Plan: Independent Date Signed: 12/24/2018 09:59 AM Electronically Signed By:Dasha Hernandez
--- NOTE | 2018-12-24 12:51 | GDS ---
[f rep st] DISCHARGE SUMMARY DISCHARGE DIAGNOSES: 1. Type 1 diabetes. 2. Nausea, vomiting. 3. Prolonged QTc. 4. Syncope. 5. Depression. 6. Fibromyalgia. 7. Hypothyroidism during . HISTORY OF PRESENT ILLNESS: A 23-year-old female with type 1 diabetes, anxiety/depression, presented to the ER with 1-day history of nausea, vomiting. Her kids and have been ill recently. No diarrhea, fevers, or chills. She has not been able to keep any oral hydration or food down due to vo miting. She has had some rhinorrhea and congestion. She took a hot shower late in the evening. Rep orts walking to the bathroom in her bedroom to grab clothing and had loss of consciousness. Denies a ny prodromal lightheadedness, chest pain. No sudden cardiac deaths in the family. In the ER, EKG demonstrated QT is 580. She was given magnesium for prolonged QTc. She recently stop ped Celexa on her own on Wednesday. HOSPITAL COURSE BY PROBLEM: 1. Syncope: Suspect this is related to orthostasis, given nausea, vomiting and the setting of a hot shower. Initial EKG showed a QTc of 580; repeat was 461. She is no longer on Effexor. Her electro lytes were repleted. Recommended that she stays hydrated. She has a repeat EKG with her PCP next we ek. If initiate any SSRI or other psychiatric medication, to have serial EKGs. Does drink a lot of energy drinks. Advised her to stop that. 2. Type 1 diabetes. Resume home insulin now that she is eating. 3. Nausea and vomiting. Suspect viral illness, given sick contacts at home. No diarrhea. She is n ow eating without issue. 4. Anxiety depression: Follow up with her PCP. 5. Hypothyroidism: TSH is 30. This might be contributing to her fatigue at home. Normal T3, T4. Follow up with PCP to re-initiate Synthroid. DISPOSITION: Patient is stable for discharge home with her . NEW MEDICATIONS: None. FOLLOWUP: Primary care physician next week for repeat EKG and discussion about Synthroid. PHYSICAL EXAM: VITAL SIGNS: Today, temperature 36.6, blood pressure 105/71, heart rate is in the 90 s, respirations 16, 97% on room air. GENERAL: She is overweight. No acute distress. HEENT: PERRLA. Moist mucous membranes. CV: Regular rate and rhythm. LUNGS: Clear. ABDOMEN: Soft, nontender, nondistended. Positive bowel sounds. : No Sigala. MUSCULOSKELETAL: 5/5 upper and lower extremity strength. NEURO: 2 through 12 intact. PSYCH: Alert and oriented x3. TIME SPENT ON DISCHARGE: Greater than 30 minutes, reviewing records, at bedside with the patient and her , explaining clinical course and followup plan. /[id number]/MODL
--- NOTE | 2018-12-25 10:37 | CPEKG ---
Test Reason : OPEN Blood Pressure : / mmHG Vent. Rate : 078 BPM Atrial Rate : 079 BPM P-R Int : 134 ms QRS Dur : 085 ms QT Int : 516 ms P-R-T Axes : 044 009 -01 degrees QTc Int : 588 ms Sinus rhythm Borderline T abnormalities, anterior leads Prolonged QT interval Confirmed by Asad Light ([id number]) on 12/25/2018 10:37:03 AM Referred By: Holli Zarate Confirmed By:Asad Light
--- NOTE | 2018-12-25 10:37 | CPEKG ---
Test Reason : OPEN Blood Pressure : / mmHG Vent. Rate : 083 BPM Atrial Rate : 083 BPM P-R Int : 136 ms QRS Dur : 082 ms QT Int : 392 ms P-R-T Axes : 042 001 006 degrees QTc Int : 461 ms Sinus rhythm Borderline T abnormalities, anterior leads Confirmed by Asad Light ([id number]) on 12/25/2018 10:37:11 AM Referred By: Holli Zarate Confirmed By:Asad Light
== END 2018-12-24 11:31 | disposition home or self-care (01) ==
LOC: CED 22:30 → CEDHOLD 12-24 01:52 → F2W 12-24 03:33
PROVIDERS: ADMIT Family Medicine; ATTEND Internal Medicine
DX: R55 Syncope and collapse (principal); E10.649 Type 1 diabetes mellitus with hypoglycemia without coma; I45.81 Long QT syndrome; E86.0 Dehydration; R11.2 Nausea with vomiting, unspecified; F32.9 Major depressive disorder, single episode, unspecified; M79.7 Fibromyalgia; E03.9 Hypothyroidism, unspecified; F41.9 Anxiety disorder, unspecified; K21.9 Gastro-esophageal reflux disease without esophagitis; Z79.4 Long term (current) use of insulin; Z87.891 Personal history of nicotine dependence
CPT/HCPCS: 93005; 96361; 96365; 99285; G0378; 80048-ER; 83605-ER; 84481-90; J3475

== ENCOUNTER 2019-02-17 10:39 | Emergency (ER) | payer MEDICAID ==
[2019-02-17 10:51] VITALS: BP 99/71
--- NOTE | 2019-02-17 11:05 | EDPHY ---
H & P Stated Complaint: right FA tattoo for week and pain and inflammation since one day after Time Seen by Provider: 02/17/19 10:48 HPI/ROS: Chief Complaint: Arm infection HPI: 23-year-old type 1 diabetic is presenting with concerns about a possible infection on her right forearm. Patient had a tattoo placed 1 week ago. One day after she noticed inflammation in blistering over the tattoo site. She does states she may have had a small amount of redness spread beyond the garcia of the tech 2 but it has been primarily restricted only to the area of the tattoo. No streaking up her arm. No fevers or chills. Patient states her blood sugars have been well controlled lately. ROS: 10 systems were reviewed and were negative except those elements noted in the HPI. PMH: Type 1 diabetes, depression, anxiety Social History: No smoking, no alcohol, no recreational drug use Family History: non-contributory Physical Exam: General: Awake, alert, no acute distress Right upper extremity: Patient has a colorful tattoo on her right forearm. There is some blistering restricted only to this area of the tattoo. There is no redness spreading beyond the demarcations of the tattoo. There is no streaking. It is not warm to touch. Skin: Per upper extremity exam - Personal History LMP (Females 10-55): Over 28 Days Ago Current Tetanus Diphtheria and Acellular Pertussis (TDAP): Yes Tetanus Vaccine Date: Oct 2017 - Medical/Surgical History Hx Asthma: No Hx Chronic Respiratory Disease: No Hx Diabetes: Yes Hx Cardiac Disease: No Hx Renal Disease: No Hx Cirrhosis: No Hx Alcoholism: No Hx HIV/AIDS: No Hx Splenectomy or Spleen Trauma: No Other PMH: DM I, anxiety/depression, GERD, hypothroid, 2018 - Social History Smoking Status: Former smoker Constitutional: Initial Vital Signs Temperature (C) 36.5 C 02/17/19 10:45 Heart Rate 93 02/17/19 10:45 Respiratory Rate 16 02/17/19 10:45 Blood Pressure 99/71 L 02/17/19 10:45 O2 Sat (%) 94 02/17/19 10:45 Allergies/Adverse Reactions: No Known Allergies Allergy (Verified 02/17/19 10:43) Home Medications: Medication Instructions Recorded Insulin NPH Human [humULIN N 100 20 units SC BID 12/24/18 UNITS/ML (*)] Cephalexin [Keflex (*)] 500 mg PO Q6H #40 cap 02/17/19 Lantus 02/17/19 Lexapro 02/17/19 Sulfamethox/Tmp 800/160 mg 1 tab PO BID #20 tab 02/17/19 [Bactrim Ds] Medical Decision Making ED Course/Re-evaluation: 23-year-old with a reaction to a new tattoo. The area blistering is restricted to where the ink is located. I think this is more likely a contact dermatitis rather than cellulitis. There is no erythema spreading beyond the demarcated area. However given her history of diabetes I am going to cover her with antibiotics. She will follow up with primary care physician. She is otherwise well-appearing. Departure - Departure Disposition: Home, Routine, Self-Care Clinical Impression: Dermatitis, Cellulitis Condition: Good Instructions: Contact Dermatitis (ED), Cellulitis (ED) Additional Instructions: Please take your full course of antibiotics. Follow up with primary care physician in 4-5 days for recheck. Return to the emergency department if the redness spreads outside area, streaking up your arm, fevers, or any other concerns. Referrals: ISREAL BROWN [Other] - As per Instructions Prescriptions: Cephalexin [Keflex (*)] 500 mg PO Q6H #40 cap Sulfamethox/Tmp 800/160 mg [Bactrim Ds] 1 tab PO BID #20 tab
== END 2019-02-17 11:19 | disposition home or self-care (01) ==
LOC: CED 10:39
DX: L25.9 Unspecified contact dermatitis, unspecified cause (principal); L03.90 Cellulitis, unspecified; E10.9 Type 1 diabetes mellitus without complications; Z79.4 Long term (current) use of insulin
CPT/HCPCS: 99284-ER